=== PATIENT | male | born 1995 | race African-American/Black ===

== ENCOUNTER 2016-09-18 12:26 | Emergency (ER) | payer OTHER ==
[~2016-09-18] VITALS: Ht 175.3 cm; Wt 86.2 kg
[~2016-09-18 12:26] MED LIST: MOBIC15 MG PO; POLYMYXIN B/TMP10 ML OP
[2016-09-18 12:43] VITALS: BP 132/82
[2016-09-18] MEDS ORDERED: KEFLEX500 MG PO (13:30)
[2016-09-18] MEDS ORDERED: CIPRODEX OTIC7.5 ML OTIC (13:30)
[2016-09-18] MEDS ORDERED: BACTROBAN CREAM30 G1 TOP (13:31)
== END 2016-09-18 13:34 | disposition home or self-care (01) ==
LOC: ER 12:26
DX: H60.91 Unspecified otitis externa, right ear (principal)

== ENCOUNTER 2020-04-04 00:33 | Emergency (ER) | payer OTHER ==
[~2020-04-04] VITALS: Ht 172.7 cm; Wt 95.3 kg
[~2020-04-04 00:33] MED LIST changes: +BACTROBAN CREAM30 G1 TOP; +CIPRODEX OTIC7.5 ML OTIC; +KEFLEX500 MG PO; +PENICILLIN V P500 MG PO
[2020-04-04 00:38] VITALS: BP 145/86
== END 2020-04-04 01:25 | disposition home or self-care (01) ==
LOC: ER 00:33
DX: S06.0X0A Concussion without loss of consciousness, initial encounter (principal); J45.909 Unspecified asthma, uncomplicated; W01.198A Fall on same level from slipping, tripping and stumbling with subsequent striking against other object, initial encounter; Y93.89 Activity, other specified; Y92.89 Other specified places as the place of occurrence of the external cause; Y99.8 Other external cause status